=== PATIENT | male | born 1975 | race Caucasian/White ===

== ENCOUNTER 2017-12-29 05:21 | Day surgery (SDC) | payer MEDICAID ==
[~2017-12-29] VITALS: Ht 180.3 cm; Wt 88.9 kg
[2017-12-29] MEDS ORDERED: LACTATED RINGERS 1,000 ML IV SCH (06:17)
[2017-12-29 06:44] VITALS: BP 130/81
[2017-12-29] MEDS ORDERED: GABA300C10 PO (06:44)
[2017-12-29] MEDS ORDERED: HYDR-3245 PO (06:44)
[2017-12-29] MEDS ORDERED: CELE200C PO (06:44)
[2017-12-29] MEDS ORDERED: THROMBIN 5,000 UNIT VIAL TP ONE (06:50)
[2017-12-29] MEDS ORDERED: LIDOCAINE 1%, 50ML ONE (06:50)
[2017-12-29] MEDS ORDERED: BUPIVACAINE/PF 0.5% ONE (06:50)
[2017-12-29] MEDS ORDERED: BACITRACIN 50,000 UNIT ONE (06:51)
[2017-12-29] MEDS ORDERED: EPINEPHRINE 1 MG/ML, 1ML ONE (06:51)
[2017-12-29] MEDS ORDERED: morphine SULFATE/PF 1 MG/ML, 10ML ONE (06:51)
[2017-12-29] MEDS ORDERED: VANCOMYCIN 1,000 MG ONE (06:51)
[2017-12-29] MEDS ORDERED: FENTANYL PF 100 MCG/2ML ONE (06:51)
[2017-12-29] MEDS ORDERED: FENTANYL PF 250 MCG/5ML ONE (07:09)
[2017-12-29] MEDS ORDERED: MIDAZOLAM 1 MG/ML, 2ML ONE (07:09)
[2017-12-29] MEDS ORDERED: ROCURONIUM 10MG/ML,5ML ONE (07:40)
[2017-12-29] MEDS ORDERED: CEFAZOLIN 1,000 MG ONE ×2 (07:40→09:15)
[2017-12-29] MEDS ORDERED: NEOSTIGMINE 1 MG/ML, 10ML ONE ×2 (07:40→09:15)
[2017-12-29] MEDS ORDERED: PROPOFOL 10 MG/ML, 20ML ONE ×2 (07:40→09:15)
[2017-12-29] MEDS ORDERED: SUCCINYLCHOLINE 20 MG/ML, 10ML ONE ×2 (07:40→09:15)
[2017-12-29] MEDS ORDERED: DEXAMETHASONE 4 MG/ML, 1ML ONE ×2 (07:40→09:15)
[2017-12-29] MEDS ORDERED: GLYCOPYRROLATE 0.2MG/1ML, 5ML ONE ×2 (07:40→09:15)
[2017-12-29] MEDS ORDERED: ALBUTEROL SULFATE 2.5 MG/3 ML NPPB PRN (09:00)
[2017-12-29] MEDS ORDERED: ACETAMINOPHEN 325 MG TABLET PO PRN (09:00)
[2017-12-29] MEDS ORDERED: hydrALAzine 20 MG/ML, 1ML IV PRN (09:00)
[2017-12-29] MEDS ORDERED: EPHEDRINE 50 MG/ML, 1ML IVPush PRN (09:00)
[2017-12-29] MEDS ORDERED: DIAZEPAM 5 MG/ML, 2ML IVPush PRN (09:00)
[2017-12-29] MEDS ORDERED: morphine SULFATE 10 MG/ML, 1ML IV PRN (09:00)
[2017-12-29] MEDS ORDERED: PROMETHAZINE 25 MG/ML, 1ML IV PRN (09:00)
[2017-12-29] MEDS ORDERED: MEPERIDINE/PF 25MG/0.5ML IVPush PRN (09:00)
[2017-12-29] MEDS ORDERED: PROMETHAZINE 12.5 MG SUPP PR PRN (09:00)
[2017-12-29] MEDS ORDERED: FENTANYL PF 100 MCG/2ML IV PRN (09:00)
[2017-12-29] MEDS ORDERED: HYDROcodone/APAP 7.5-325MG/15ML UDC PO PRN (09:00)
[2017-12-29] MEDS ORDERED: OXYcodone 5 MG/5 ML ORAL.SOL UDC PO PRN (09:00)
[2017-12-29] MEDS ORDERED: METOPROLOL 1 MG/ML, 5ML IV PRN (09:00)
[2017-12-29] MEDS ORDERED: MIDAZOLAM 1 MG/ML, 2ML IV PRN (09:00)
[2017-12-29] MEDS ORDERED: LABETALOL 5MG/ML, 20ML IV PRN (09:00)
[2017-12-29] MEDS ORDERED: ONDANSETRON 2MG/ML, 2ML IVPush PRN (09:00)
[2017-12-29] MEDS ORDERED: ROCURONIUM 10 MG/ML,10ML ONE (09:15)
[2017-12-29] MEDS ORDERED: ONDANSETRON 2MG/ML, 2ML ONE (09:15)
== END 2017-12-29 12:45 ==
LOC: OUT 05:21
PROVIDERS: ATTEND Orthopaedic Surgery Orthopaedic Surgery of the Spine
DX: M51.16 Intervertebral disc disorders with radiculopathy, lumbar region (principal); M48.061 Spinal stenosis, lumbar region without neurogenic claudication; M47.896 Other spondylosis, lumbar region
CPT/HCPCS: 63030; 72100; J0171; J0330; J0690; J1100; J2250; J2405; J2704; J2710; J3010; J3490; J7120; J2274; J3370